=== PATIENT | female | born 1975 | race Caucasian/White ===

== ENCOUNTER 2024-07-08 15:02 | Outpatient (CLI) | payer BC, SELFPAY | END 2024-07-08 15:03 | disposition home or self-care (01) | PROVIDERS: PCP Family Medicine; Visit Provider Physician Assistant | DX: R53.83 Other fatigue (principal); Z13.21 Encounter for screening for nutritional disorder; Z13.29 Encounter for screening for other suspected endocrine disorder | CPT/HCPCS: 82306; 84443 ==

== ENCOUNTER 2024-07-20 17:06 | Outpatient (CLI) | payer BC, SELFPAY ==
--- NOTE | 2024-07-20 17:20 | CRLHL7_ITS ---
For Patients: As a result of the Century Cures Act, medical imaging exams and procedure reports are released immediately into your electronic medical record. You may view this report before your referring provider. If you have questions, please contact your health care provider. BILATERAL SCREENING MAMMOGRAM WITH COMPUTER-AIDED DETECTION TECHNIQUE: CC, MLO and Implant displaced views were obtained. These mammographic images have been obtained using full-field digital technique. These mammographic images were interpreted with the benefit of computer-aided detection. COMPARISON FILM: 04/22/18. FINDINGS: The breasts are heterogeneously dense, which may obscure small masses. IMPRESSION: There is no radiographic evidence for malignancy. ASSESSMENT: BI-RADS Category 2: Benign RECOMMENDATION: Routine screening mammogram in 1 year. A lay language report of this examination will be provided to the patient. Dequan Arriaga M.D. Diagnostic Radiologist [email or web address] SP/Dictated by: Dequan Arriaga MD @ 07/21/2024 10:40:00 AM (Electronically Signed)
== END 2024-07-20 17:07 | disposition home or self-care (01) ==
LOC: MAMMO 17:07
PROVIDERS: PCP Family Medicine; Visit Provider Family Medicine
DX: Z12.31 Encounter for screening mammogram for malignant neoplasm of breast (principal); R92.333 Mammographic heterogeneous density, bilateral breasts
CPT/HCPCS: 77063; 77067

== ENCOUNTER 2024-10-18 15:58 | Outpatient (CLI) | payer BC, SELFPAY | END 2024-10-18 15:59 | disposition home or self-care (01) | PROVIDERS: PCP Family Medicine; Visit Provider Family Medicine | DX: N95.1 Menopausal and female climacteric states (principal); Z12.4 Encounter for screening for malignant neoplasm of cervix | CPT/HCPCS: 80053; 82670; 83001; 83002; 87624; 87625; 88141; 88142 ==